=== PATIENT | male | born 1980 | race Two or more races ===

== ENCOUNTER 2023-12-02 12:26 | Emergency (ER) | payer MEDICAID ==
[~2023-12-02] VITALS: Ht 170.2 cm; Wt 113.4 kg
[2023-12-02] MEDS ORDERED: IBU600T PO (13:08)
[2023-12-02 15:02] VITALS: BP 132/86; PULSE 89; RESP 18; TEMP 98.2; O2SAT 98
== END 2023-12-02 15:05 | disposition home or self-care (01) ==
LOC: ER 12:26
DX: S39.011A Strain of muscle, fascia and tendon of abdomen, initial encounter (principal); Z79.899 Other long term (current) drug therapy; X58.XXXA Exposure to other specified factors, initial encounter; Y93.89 Activity, other specified; Y92.89 Other specified places as the place of occurrence of the external cause; Y99.8 Other external cause status
CPT/HCPCS: 76870